=== PATIENT | female | born 1930 | race Caucasian/White ===

== ENCOUNTER 2021-10-09 17:48 | Emergency (ER) | payer MEDICARE, SELFPAY ==
[~2021-10-09] VITALS: Ht 165.1 cm; Wt 74.8 kg
[2021-10-09 17:51] VITALS: BP_SYST 138
--- NOTE | 2021-10-09 17:57 | NUR ---
Pt to bed #8 BIBA ACLS coming from home due to pt c/o being tested positive for covid 2 days ago and is sneezing. Has no other symptoms. A&Ox4. NKA. Hx of HTN, DM, Dementia, Psych disorders, and Hypothyroidism. Blood sugar check results of 165. VSS. Connected pt to awake overnight monitor. No chest pain and no sob. Denies n/v. Bed in lowest position.
[2021-10-09] MEDS ORDERED: guaiFENesin/DEXTROMETHORPHAN 1 EACH TAB.ER.12H PO ONE (18:00)
--- NOTE | 2021-10-09 18:07 | NUR ---
20g IV placed on right forearm using aseptic technique no infiltration noted.
--- NOTE | 2021-10-09 18:13 | NUR ---
Covid swab and flu swab done and sent to lab.
--- NOTE | 2021-10-09 18:18 | NUR ---
Chest X-Ray being done at bedside.
--- NOTE | 2021-10-09 18:32 | NUR ---
Urine collected and sent to lab.
[2021-10-09 18:37] LABS: BILIRUBIN,URINE NEGATIVE (NEGATIVE); BLOOD, URINE NEGATIVE (NEGATIVE); COLOR,URINE YELLOW (YELLOW); GLUCOSE,URINE NEGATIVE (NEGATIVE); KETONES,URINE NEGATIVE (NEGATIVE); LEUKOCYTE ESTERASE ,URINE 2+ (NEGATIVE); NITRITE, URINE NEGATIVE (NEGATIVE); PROTEIN URINE NEGATIVE (NEGATIVE); UROBILINOGEN,URINE 0.2 (0.2-1.0)
[2021-10-09 18:38] LABS: CLARITY/URINE SLIGHTLY HAZY (CLEAR)
[2021-10-09 18:47] LABS: RBC,URINE 0-3 /HPF (0-3)
[2021-10-09 18:48] LABS: BACTERIA,URINE FEW /HPF (None Seen)
--- NOTE | 2021-10-09 19:01 | NUR ---
Called lab to draw blood from pt and they stated they will come draw blood as soon as they can.
--- NOTE | 2021-10-09 19:22 | NUR ---
Received report at this time. Pt lying on right side. Presently on monitor. No acute distress noted. denies pain.
--- NOTE | 2021-10-09 19:22 | NUR ---
Report given to [facility].
[2021-10-09] MEDS ORDERED: COMMUNICATION ORDER XX ONE (20:00)
[2021-10-09] MEDS ORDERED: IBUPROFEN 600 MG TABLET PO ONE (20:30)
[2021-10-09] MEDS ORDERED: NACL 0.9% 1,000 ML IV ONE (20:30)
[2021-10-09] MEDS ORDERED: ACETAMINOPHEN 500 MG TABLET PO ONE (20:30)
--- NOTE | 2021-10-09 20:31 | NUR ---
Received bebtelovimab 175mg/2ml medication at this time. Pt to receive admin iv dose soon.
[2021-10-09 20:37] LABS: BASOPHILS # (AUTO) 0.2 K/uL (0.0-0.2); BASOPHILS % (AUTO) 3.1 % (0.0-2.0); EOSINOPHILS # (AUTO) 0.1 K/uL (0.0-0.4); EOSINOPHILS % (AUTO) 1.3 % (0.0-4.0); HEMATOCRIT 35.9 % (36-48); HEMOGLOBIN 11.7 g/dL (12.0-16.0); LYMPHOCYTES # (AUTO) 0.5 K/uL (1.0-5.5); LYMPHOCYTES % (AUTO) 7.1 % (20.5-51.5); MEAN CORPUSCULAR HEMOGLOBIN 30 pg (27-31); MEAN CORPUSCULAR HGB CONC 33 % (32-36); MEAN CORPUSCULAR VOLUME 91 fL (79.0-98.0); MONOCYTES # (AUTO) 0.7 K/uL (0.0-1.0); MONOCYTES % (AUTO) 9.9 % (1.7-9.3); NEUTROPHILS # (AUTO) 5.8 K/uL (1.8-7.7); NEUTROPHILS % (AUTO) 78.6 % (40.0-70.0); PLATELET COUNT (AUTO) 198 K/uL (130-430); RED BLOOD CELL COUNT(AUTO) 3.94 MIL/uL (4.2-6.2); RED CELL DISTRIBUTION WIDTH 14.7 % (9.0-15.0); WHITE BLOOD COUNT (AUTO) 7.4 K/uL (4.8-10.8)
[2021-10-09 20:40] LABS: ANION GAP 10 (5-15); CALCIUM 9.7 mg/dL (8.4-11.0); CHLORIDE 103 mmol/L (98-107); GLUCOSE 208 mg/dL (70-99); POTASSIUM 4.7 mmol/L (3.5-5.1); SODIUM SERUM 138 mmol/L (136-145); UREA NITROGEN, BLOOD 42 mg/dL (8-21)
[2021-10-09 20:46] LABS: ALANINE AMINOTRANSFERASE 19 U/L (12-78); ALBUMIN 3.4 g/dL (3.4-4.8); ASPARTATE AMINOTRANSFERASE 14 U/L (10-37)
[2021-10-09 20:58] LABS: TOTAL BILIRUBIN 0.1 mg/dL (0.0-1.0)
[2021-10-09] MEDS ORDERED: AZITHROMYCIN 250 MG TABLET PO ONE (21:00)
--- NOTE | 2021-10-09 21:12 | NUR ---
Spoke with patient's son Sp to obtain consent for Bebtelovimab administration. Charge nurse OLIVIA Betts spoke with son as well for telephone witnessed consent.
--- NOTE | 2021-10-09 21:55 | NUR ---
Admin bebtelovimab iv. Lot #[id number] Exp. [id number]. Provided education/teaching to patient. Stressed the importance of reporting any issues. Reviewed common side effects and allergic reactions. Pt stated, "I will let you know."
[2021-10-09] MEDS ORDERED: cephALEXin 500 MG CAPSULE PO ONE (22:00)
--- NOTE | 2021-10-09 23:59 | NUR ---
Notified community health nurse staff to follow up with [facility]. [place] on phone now.
--- NOTE | 2021-10-10 00:40 | NUR ---
Report given to OLIVIA Hermosillo of [facility] ([place]).
[2021-10-10 01:00] VITALS: BP_SYST 126
--- NOTE | 2021-10-10 01:00 | NUR ---
Patient to be transferred to [facility]. Is being transferred due to insurance purposes. Receiving facility has accepting physician and available space. ER physician has signed transfer form. Patient's son Sp Yanes has agreed to transfer and telephone consent has been obtained. Patient belongings inventoried and will be sent with patient. Copy of nursing notes, lab reports, EKG, Physicians Orders and X-rays to be sent with patient. Report called to OLIVIA Hermosillo at receiving facility. Receiving physician is Dr. Moses. [id number] service has been called for transfer. ETA is at this time 0100.
== END 2021-10-10 01:00 | disposition short-term general hospital (02) ==
LOC: SED 17:48
DX: U07.1 COVID-19 (principal); J12.82 Pneumonia due to coronavirus disease 2019; N39.0 Urinary tract infection, site not specified; M62.81 Muscle weakness (generalized); D64.9 Anemia, unspecified
CPT/HCPCS: 36415; 71045; 80053; 81000; 85025; 87086; 87426; 87804 ×2; 93005; 96360; 99285; Q0144; J7030